=== PATIENT | male | born 1985 | race Caucasian/White ===

== ENCOUNTER 2017-10-25 05:52 | Emergency (ER) ==
[2017-10-25 06:08] VITALS: BP 154/80; TEMP 98.2; BMI 35.6
--- NOTE | 2017-10-25 06:38 | ED.PDOC ---
General ED Provider: Dr. MARISA NGUYEN Chief Complaint: Earache Stated Complaint: Patient is a 32 year old Male who comes to the ER with right ear pain and pressure for the past day or two. He initially thought it was water in his ears then it progressed to deafness and now pain. Thinks he may have wax. Does not have a PCP. Rates the pain as moderate. Time Seen by Physician: 06:35 Mode of Arrival: Walk-In Information Source: Patient Nursing and Triage Documentation Reviewed and Agree: Yes Does patient meet sepsis criteria?: No If yes, has appropriate treatment been initiated?: No System Inflammatory Response Syndrome: Not Applicable Sepsis Protocol: For patient's 13 years and over: Temp is 96.8 and below OR 101 and greater Pulse >90 BPM Resp >20/minute Acutely Altered Mental Status Are patient's symptoms suggestive of a new infection, such as: -Pneumonia -Skin, Soft Tissue -Endocarditis -UTI -Bone, Joint Infection -Implantable Device -Acute Abdominal Infection -Wound Infection -Meningitis -Blood Stream Catheter Infection -Unknown EENT Complaint Exam - Ear Complaint/Exam Onset/Duration: 2 days Symptoms Are: Still present Timing: Constant Initial Severity: Moderate Current Severity: Moderate Character: Reports: Dull pain, Unable to describe Aggravating: Reports: Foreign body Associated Signs and Symptoms: Reports: Foreign body sensation Ear Surgical History: None Vesicles to External Pinna: No Vesicles to Tragus: No TMJ Tenderness: None Mastoid Tenderness: None Tragal Tenderness: None External Canal: Normal Material in Canal: Present: Cerumen Tympanic Membrane: Erythema Differential Diagnoses: Cerumen Impaction, Otitis Media Review of Systems - Review Of Systems Constitutional: Reports: No symptoms Eyes: Reports: No symptoms Ears, Nose, Mouth, Throat: Reports: Ear pain Respiratory: Reports: No symptoms Cardiac: Reports: No symptoms GI: Reports: No symptoms : Reports: No symptoms Musculoskeletal: Reports: No symptoms Skin: Reports: No symptoms Neurological: Reports: No symptoms Endocrine: Reports: No symptoms Hematologic/Lymphatic: Reports: No symptoms All Other Systems: Reviewed and Negative Past Medical History - Past Medical History Previously Healthy: Yes Endocrine: Reports: None Cardiovascular: Reports: None Respiratory: Reports: None Hematological: Reports: None Gastrointestinal: Reports: None Genitourinary: Reports: None Neuro/Psych: Reports: None Musculoskeletal: Reports: None Cancer: Reports: None - Surgical History General Surgical History: Reports: None - Family History Family History: Reports: None - Social History Smoking Status: Current some day smoker, Light tobacco smoker Hx Substance Use: No Alcohol Screening: Occasionally - Immunizations Tetanus Shot up to Date: Yes Physical Exam - Physical Exam Appearance: Well-appearing Pain Distress: Moderate ENT: Nose normal, Oropharynx normal Neck: Supple Respiratory: Airway patent, Breath sounds clear Cardiovascular: RRR, Pulses normal, No rub, No murmur Psychiatric: Anxious Procedures - Cerumen Removal Location: Right ear Instrument Used: Otoscope, Syringe Irrigation Used: Yes (1000 ml) Results: Wax (almost completely removed. ) Pain Successfully Reduced: Yes Critical Care Note - Critical Care Note Total Time (mins): 0 Course - Course Vital Signs: Temp Pulse Resp BP Pulse Ox 10/25/17 05:53 98.2 F 83 16 154/80 H 97 Departure - Departure Time of Disposition: 07:00 Disposition: HOME SELF-CARE Discharge Problem: Impacted cerumen of right ear Instructions: Otitis Externa (ED), Cerumen Impaction (ED) Condition: Good Pt referred to PMD for follow-up: Yes IPMP verified?: No Additional Instructions: Use over the counter Debrox 3-4 times a day to soak the right ear for 3 days so you can rinse/flush it. Take Tylenol as needed for pain get established with the clinic and follow up Prescriptions: Neomycin/Polymyxin B/Hc Otic [Cortisporin Otic Susp] 4 drop OT Q8H #10 drops.susp Allergies/Adverse Reactions: Allergies codeine Adverse Reaction (Verified 10/25/17 06:02) Home Medications: Ambulatory Orders Neomycin/Polymyxin B/Hc Otic [Cortisporin Otic Susp] 4 drop OT Q8H #10 drops.susp 10/25/17 Disposition Discussed With: Patient, Family
[2017-10-25] MEDS ORDERED: TYLENOL PO STA (07:06)
== END 2017-10-25 07:14 | disposition home or self-care (01) ==
LOC: ED 05:52
DX: H61.21 Impacted cerumen, right ear (principal); H92.01 Otalgia, right ear; F17.210 Nicotine dependence, cigarettes, uncomplicated
CPT/HCPCS: 99282

== ENCOUNTER 2018-09-25 11:11 | Emergency (ER) ==
[2018-09-25 11:24] VITALS: BP 154/78; TEMP 97.7; BMI 37.9
--- NOTE | 2018-09-25 12:52 | CT ---
EXAM: CT scan of the abdomen and pelvis without contrast HISTORY: Diarrhea, chronic pain TECHNIQUE: Helical imaging of the abdomen pelvis was performed without contrast. 3 mm thin axial im ages and coronal and sagittal reconstructions were provided for interpretation. FINDINGS: The liver, spleen, pancreas, adrenal glands and kidneys appear normal. The proximal urete rs are normal size. The small and large bowel loops caliber. There is no free air. No retroperiton eal abnormalities are seen. The helical images obtained through the pelvis demonstrate an appearance of the rectum, urinary bladd er. There is no free fluid seen within the pelvis. The appendix appears normal. Lung bases are carlos ar. No lytic or blastic lesions are seen within the osseous structures. IMPRESSION: There is no bowel obstruction or acute inflammatory change seen within the abdomen and p nadeen. There is no ureteral obstruction.
--- NOTE | 2018-09-25 13:21 | ED.PDOC ---
General ED Provider: Dr. ELSA DE OLIVEIRA Chief Complaint: Diarrhea Stated Complaint: chronic diarrhea Time Seen by Physician: 11:13 (this is a chronic diarrhea ) Mode of Arrival: Walk-In Information Source: Patient Exam Limitations: No limitations Nursing and Triage Documentation Reviewed and Agree: Yes Does patient meet sepsis criteria?: No System Inflammatory Response Syndrome: Not Applicable Sepsis Protocol: For patient's 13 years and over: Temp is 96.8 and below OR 101 and greater Pulse >90 BPM Resp >20/minute Acutely Altered Mental Status Are patient's symptoms suggestive of a new infection, such as: -Pneumonia -Skin, Soft Tissue -Endocarditis -UTI -Bone, Joint Infection -Implantable Device -Acute Abdominal Infection -Wound Infection -Meningitis -Blood Stream Catheter Infection -Unknown GI Complaint Exam - Vomiting/Diarrhea Complaint/Exam Onset/Duration: 1 month Symptoms Are: Still present Episodes of Vomiting over last 24 Hours: 0 Episodes of Diarrhea Over Last 24 Hours: 4 Initial Severity: Mild Current Severity: None Character of Vomiting: Reports: Non-bilious Aggravating: Reports: None Alleviating: Reports: None Associated Signs and Symptoms: Denies: Dizziness, Light-headedness, Melena, Hematemesis, Fever, Abdominal pain, Cramping Related History: Reports: Similar episode Non-GI Risk Factors: Reports: None Surgical Obstruction Risk Factors: Reports: None Abdominal Findings: Present: None Differential Diagnoses: Viral Gastroenteritis, Other (I.B.D) Review of Systems - Review Of Systems Constitutional: Reports: No symptoms Eyes: Reports: No symptoms Ears, Nose, Mouth, Throat: Reports: No symptoms Respiratory: Reports: No symptoms Cardiac: Reports: No symptoms GI: Reports: Diarrhea : Reports: No symptoms Musculoskeletal: Reports: No symptoms Skin: Reports: No symptoms Neurological: Reports: No symptoms Endocrine: Reports: No symptoms Hematologic/Lymphatic: Reports: No symptoms All Other Systems: Reviewed and Negative Past Medical History - Past Medical History Previously Healthy: Yes Endocrine: Reports: None Cardiovascular: Reports: None Respiratory: Reports: None Hematological: Reports: None Gastrointestinal: Reports: None Genitourinary: Reports: None Neuro/Psych: Reports: None Musculoskeletal: Reports: None Cancer: Reports: None - Surgical History General Surgical History: Reports: None - Family History Family History: Reports: None - Social History Smoking Status: Current some day smoker Hx Substance Use: No Alcohol Screening: Occasionally - Immunizations Tetanus Shot up to Date: Yes Physical Exam - Physical Exam Appearance: Well-appearing, No pain distress, Well-nourished Eyes: KVNG, EOMI, Conjunctiva clear ENT: Ears normal, Nose normal, Oropharynx normal Respiratory: Airway patent, Breath sounds clear, Breath sounds equal, Respirations nonlabored Cardiovascular: RRR, Pulses normal, No rub, No murmur GI/: Soft, Nontender, No masses, Bowel sounds normal, No Organomegaly Musculoskeletal: Normal strength, ROM intact, No edema, No calf tenderness Skin: Warm, Dry, Normal color Neurological: Sensation intact, Motor intact, Reflexes intact, Cranial nerves intact, Alert, Oriented Psychiatric: Affect appropriate, Mood appropriate Critical Care Note - Critical Care Note Total Time (mins): 0 Course - Course Hematology/Chemistry: 09/25/18 12:30 09/25/18 12:30 Orders, Labs, Meds: Lab Review 09/25/18 09/25/18 12:30 12:30 WBC 15.18 H RBC 5.34 Hgb 15.4 Hct 46.0 MCV 86.1 MCH 28.8 MCHC 33.5 RDW Coeff of Walt 13.1 Plt Count 259 Immature Gran % (Auto) 1.4 Neut % (Auto) 55.4 Lymph % (Auto) 27.3 Brooke % (Auto) 7.2 Eos % (Auto) 8.4 H Baso % (Auto) 0.3 Immature Gran # (Auto) 0.2 Neut # (Auto) 8.4 H Lymph # (Auto) 4.2 H Brooke # (Auto) 1.1 Eos # (Auto) 1.3 H Baso # (Auto) 0.1 Sodium 138.4 Potassium 3.64 Chloride 103.6 Carbon Dioxide 23.0 Anion Gap 15.44 BUN 9.8 Creatinine 1.05 Estimated GFR (MDRD) 82.00 BUN/Creatinine Ratio 9.33 Glucose 109.7 H Calcium 9.26 Total Bilirubin 0.52 AST 35.8 ALT 57.1 H Alkaline Phosphatase 64.2 Total Protein 7.42 Albumin 4.70 Globulin 2.72 Albumin/Globulin Ratio 1.72 Amylase 50.5 Lipase 78.8 Orders Category Date Time Status C-DIFF MONITORING (NURSING) BID CARE 09/25/18 12:21 Inactive AMYLASE Stat LAB 09/25/18 12:30 Completed CBC W/ AUTO DIFF Stat LAB 09/25/18 12:30 Completed COMPREHENSIVE METABOLIC PANEL Stat LAB 09/25/18 12:30 Completed LIPASE Stat LAB 09/25/18 12:30 Completed c-diff [C. DIFFICILE] Routine LAB 09/25/18 12:[address] ABDOMEN/PELVIS WO CONTRAST Stat RADS 09/25/18 12:20 Completed Vital Signs: Temp Pulse Resp BP Pulse Ox 09/25/18 11:13 97.7 F 81 16 154/78 H 98 Departure - Departure Time of Disposition: 13:20 Disposition: HOME SELF-CARE Discharge Problem: Diarrhea Abdominal pain Qualifiers: Abdominal location: generalized Qualified Code(s): R10.84 - Generalized abdominal pain Instructions: Dehydration (ED), Acute Diarrhea (ED), Abdominal Pain (ED) Condition: Good Pt referred to PMD for follow-up: Yes IPMP verified?: No Additional Instructions: Please call your Family Physician as soon as possible to schedule a follow-up appointment. Allergies/Adverse Reactions: Allergies codeine Adverse Reaction (Verified 09/25/18 11:34) Home Medications: Ambulatory Orders 1 [No Reported Medications] 09/25/18
== END 2018-09-25 13:54 | disposition home or self-care (01) ==
LOC: ED 11:11
DX: R19.7 Diarrhea, unspecified (principal); R10.84 Generalized abdominal pain; F17.210 Nicotine dependence, cigarettes, uncomplicated
CPT/HCPCS: 36415; 80053; 82150; 83690; 85025; 99283